=== PATIENT | female | born 1980 | race Caucasian/White ===

== ENCOUNTER → 2020-04-21 | Outpatient (CLI) | payer OTHER ==
--- NOTE | 2020-04-21 16:09 | REP ---
INDICATION: PAIN COMPARISON: None. TECHNIQUE: AP, lateral, bilateral oblique views left foot. FINDINGS: The osseous structures and joint spaces are intact and normal. There is no evidence for acute fracture or dislocation. Surrounding soft tissues are unremarkable. No subcutaneous emphysema or radiodense foreign body. IMPRESSION: . No acute fracture or dislocation. <Electronically signed by Kris Martinez > 04/21/20 [id number]
[2020-04-21 17:44] LABS: BASO # 0.1 10^3/uL (0.0-0.2); BASO % 0.7 % (0.0-1.0); EOS # 0.1 10^3/uL (0.0-0.5); EOS % 1.2 % (0.0-3.0); HEMATOCRIT 46.8 % (36.0-47.0); HEMOGLOBIN 14.9 g/dl (12.0-15.5); LYMPH % 24.4 % (24.0-44.0); MEAN CORPUSCULAR HEMOGLOBIN 29.9 pg (27.0-33.0); MEAN CORPUSCULAR HGB CONC 31.8 g/dl (32.0-36.5); MEAN CORPUSCULAR VOLUME 93.8 fl (80.0-96.0); MONO # 0.7 10^3/uL (0.0-0.8); MONO % 8.8 % (0.0-5.0); NEUTROPHILS # 5.2 10^3/uL (1.5-8.5); NEUTROPHILS % 64.5 % (36.0-66.0); PLATELET COUNT, AUTOMATED 253 10^3/uL (150-450); RED BLOOD COUNT 4.99 10^6/uL (4.00-5.40); WHITE BLOOD COUNT 8.1 10^3/uL (4.0-10.0)
[2020-04-21 18:05] LABS: ERYTHROCYTE SEDIMENTATION RATE 4 mm/hr (0-20)
[2020-04-21 18:12] LABS: ALBUMIN 4.5 GM/DL (3.2-5.2); ALT/SGPT 26 U/L (12-78); BILIRUBIN,TOTAL 0.6 MG/DL (0.2-1.0); BLOOD UREA NITROGEN 12 MG/DL (7-18); CALCIUM LEVEL 9.4 MG/DL (8.5-10.1); CARBON DIOXIDE LEVEL 30 MEQ/L (21-32); CHLORIDE LEVEL 104 MEQ/L (98-107); CREATININE FOR GFR 0.91 MG/DL (0.55-1.30); FREE T4 1.03 NG/DL (0.76-1.46); GLOMERULAR FILTRATION RATE > 60.0 (>60); GLUCOSE, FASTING 94 MG/DL (70-100); IRON (FE) 89 UG/DL (50-170); PERCENT SATURATION 23.8 % (13.2-45.0); POTASSIUM SERUM 3.9 MEQ/L (3.5-5.1); RHEUMATOID FACTOR QUANT < 10.0 IU/ML (<15.0); SODIUM LEVEL 138 MEQ/L (136-145); TOTAL IRON BINDING CAPACITY 374 UG/DL (250-450); TOTAL PROTEIN 8.1 GM/DL (6.4-8.2)
[2020-04-21 18:27] LABS: TOTAL 25(OH) VITAMIN D 37.4 NG/ML (30.0-100.0)
[2020-04-25 12:06] LABS: ANA (HEP2) Negative (.); CYCLIC CITRULLINATED PEPTIDE 7 units (0-19); TISSUE TRANSGLUTAMINASE IgA <2 U/mL (0-3); TISSUE TRANSGLUTAMINASE IgG 6 U/mL (0-5); VIT B12 UNSAT BINDING CAPACITY 1354 pg/mL (725-2045)
== END ==
LOC: M WUC 15:33
PROVIDERS: ATTEND Family Medicine
DX: M79.672 Pain in left foot (principal); M62.830 Muscle spasm of back; R61 Generalized hyperhidrosis; R53.83 Other fatigue

== ENCOUNTER → 2020-08-05 | Outpatient (REF) | payer OTHER, MEDICAID ==
[2020-08-05 11:42] LABS: HEMATOCRIT 45.6 % (36.0-47.0); HEMOGLOBIN 14.7 g/dl (12.0-15.5); MEAN CORPUSCULAR HEMOGLOBIN 30.6 pg (27.0-33.0); MEAN CORPUSCULAR HGB CONC 32.2 g/dl (32.0-36.5); PLATELET COUNT, AUTOMATED 262 10^3/uL (150-450); WHITE BLOOD COUNT 9.1 10^3/uL (4.0-10.0)
[2020-08-05 12:25] LABS: HCG, SERUM QUANTITATIVE 761 MIU/ML
[2020-08-05 12:42] LABS: HEPATITIS B SURFACE ANTIGEN NEGATIVE (NEGATIVE)
[2020-08-05 13:10] LABS: HEPATITIS C VIRUS ABY INDEX < 0.0 INDEX (<0.8)
[2020-08-08 08:10] LABS: HIV 1&2 SCREEN CENTAUR NEGATIVE (NEGATIVE)
== END ==
LOC: M LAB REF 11:02
PROVIDERS: ATTEND Advanced Practice Midwife
DX: Z32.01 Encounter for pregnancy test, result positive (principal)

== ENCOUNTER → 2021-01-12 | Outpatient (CLI) | payer BC ==
[2021-01-12 20:29] LABS: HEMATOCRIT 34.2 % (36.0-47.0); HEMOGLOBIN 10.9 g/dl (12.0-15.5); MEAN CORPUSCULAR HEMOGLOBIN 31.1 pg (27.0-33.0); MEAN CORPUSCULAR HGB CONC 31.9 g/dl (32.0-36.5); MEAN CORPUSCULAR VOLUME 97.7 fl (80.0-96.0); PLATELET COUNT, AUTOMATED 211 10^3/uL (150-450)
== END ==
LOC: M WUC 14:55
PROVIDERS: ATTEND Obstetrics & Gynecology
DX: Z34.82 Encounter for supervision of other normal pregnancy, second trimester (principal); Z3A.00 Weeks of gestation of pregnancy not specified

== ENCOUNTER 2021-02-20 11:39 | Outpatient (CLI) | payer BC ==
[~2021-02-20] VITALS: Ht 170.2 cm; Wt 66.5 kg
[2021-02-20 11:58] VITALS: BP 118/68
[2021-02-20] MEDS ORDERED: PRENTAB9 PO (12:15)
[2021-02-20] MEDS ORDERED: CLAR5TAB11 PO (12:16)
[2021-02-20] MEDS ORDERED: AMBI10TA PO (12:17)
[2021-02-20] MEDS ORDERED: MONT5CHW8 PO (12:19)
[2021-02-20] MEDS ORDERED: HOME MED LIST COMPLETE! XX SCH (12:20)
[2021-02-20] MEDS ORDERED: TIZA2TA PO (12:20)
[2021-02-20] MEDS ORDERED: LACTATED RINGER'S 1000 ML IV ONE (12:25)
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
[2021-02-20 13:18] VITALS: BP 99/58
[2021-02-20 13:21] LABS: HEMATOCRIT 39.1 % (36.0-47.0); HEMOGLOBIN 12.9 g/dl (12.0-15.5); MEAN CORPUSCULAR HEMOGLOBIN 31.5 pg (27.0-33.0); MEAN CORPUSCULAR VOLUME 95.4 fl (80.0-96.0); PLATELET COUNT, AUTOMATED 201 10^3/uL (150-450); WHITE BLOOD COUNT 8.9 10^3/uL (4.0-10.0)
[2021-02-20 13:33] LABS: INR 0.85
--- NOTE | 2021-02-20 13:41 | REP ---
INDICATION: contractions, rule out abruption. COMPARISON: None. TECHNIQUE: Real-time sonographic evaluation of gravid uterus performed. FINDINGS: There is a single living intrauterine gestation. The estimated gestational age is 33 weeks 4 days, EDC 04/06/2021. position cephalic. Placenta on the left, grade 1 with no previa or abruption. heart rate 127 beats per minute. Amniotic fluid within normal limits. MARCELINO 13.2, normal range 8.2-24.7. SD ratio umbilical artery 2.31, normal 1.75-3.72. RI 0.57, normal 0.47-0.73. Cervix is closed measures 4.8 cm in length. IMPRESSION: Viable intrauterine gestation as above. <Electronically signed by Mateo Roman > 02/20/21 [id number]
[2021-02-20] MEDS ORDERED: TERBUTALINE SULFATE 1 MG/ML VIAL (J3105) SC STA ×2 (14:00→16:38)
[2021-02-20 14:12] VITALS: BP 103/65
[2021-02-20 14:58] LABS: PARTIAL THROMBOPLASTIN TIME 28.1 SECONDS (25.9-37.0)
[2021-02-20 14:58] LABS: APPEARANCE, URINE CLEAR (CLEAR); BACTERIA, URINE AUTO NEGATIVE (NEGATIVE); BILIRUBIN, URINE AUTO NEGATIVE (NEGATIVE); BLOOD, URINE BLOOD NEGATIVE (NEGATIVE); COLOR, URINE YELLOW (YELLOW); GLUCOSE, URINE (UA) AUTO NEGATIVE (NEGATIVE); KETONE, URINE AUTO 1+ mg/dL (NEGATIVE); LEUKOCYTE ESTERASE, URINE AUTO NEGATIVE (NEGATIVE); NITRITE, URINE AUTO NEGATIVE (NEGATIVE); PROTEIN, URINE AUTO NEGATIVE (NEGATIVE); RBC, URINE AUTO 0 /HPF (0-3); SPECIFIC GRAVITY URINE AUTO 1.005 (1.002-1.035); SQUAMOUS EPITHELIAL CELL UR AU 1 /HPF (0-6); UROBILINOGEN, URINE AUTO 0.2 mg/dL (0.0-2.0); WBC, URINE AUTO 0 /HPF (0-3)
[2021-02-20 15:15] VITALS: BP 105/57
[2021-02-20 16:45] VITALS: BP 114/67
[2021-02-20 17:40] VITALS: BP 99/68
[2021-02-20] MEDS ORDERED: ONDANSETRON 4MG/2ML VIAL IV SCH (18:00)
[2021-02-20] MEDS ORDERED: ACETAMINOPHEN 500 MG TAB PO ONE (18:20)
== END 2021-02-20 18:50 | disposition home or self-care (01) ==
LOC: M LDO 11:39
PROVIDERS: ATTEND Advanced Practice Midwife
DX: O60.03 Preterm labor without delivery, third trimester (principal); O09.529 Supervision of elderly multigravida, unspecified trimester; O34.22 Maternal care for cesarean scar defect (isthmocele); Z3A.32 32 weeks gestation of pregnancy; Y92.9 Unspecified place or not applicable; Y93.9 Activity, unspecified; Y99.9 Unspecified external cause status
CPT/HCPCS: 59025; 76815; 76817; 81001; 85027; 85384; 85460; 85610; 85730; 86850; 86900; 86901; 87086; 96372; 96374; G0378; G0463; J2405; J3105

== ENCOUNTER → 2021-03-07 | Outpatient (REF) | payer BC ==
[~2021-03-07] MED LIST: AMBI10TA PO; CLAR5TAB11 PO; COLA100C5 PO; CVS1CAP2 PO; IBUP80TA PO; IRON65TA2 PO; MONT5CHW9 PO; PERCOCET PO; PRENTAB9 PO; TIZA2TA PO
== END ==
LOC: M LAB REF 16:32
PROVIDERS: ATTEND Advanced Practice Midwife
DX: Z34.83 Encounter for supervision of other normal pregnancy, third trimester (principal); Z3A.00 Weeks of gestation of pregnancy not specified

== ENCOUNTER → 2021-03-29 | Outpatient (CLI) | payer BC ==
[~2021-03-29] MED LIST changes: -COLA100C5 PO; -IBUP80TA PO; +MONT5CHW8 PO; -MONT5CHW9 PO; -PERCOCET PO
== END ==
LOC: M LABSMTC 12:53
PROVIDERS: ATTEND Anesthesiology
DX: Z01.812 Encounter for preprocedural laboratory examination (principal); Z20.822 Contact with and (suspected) exposure to COVID-19

== ENCOUNTER 2021-03-31 05:54 | Inpatient (IN) | payer BC ==
[~2021-03-31] VITALS: Ht 170.2 cm; Wt 67.3 kg
[2021-03-31] VITALS (7 sets, daily range): BP systolic 104–127; BP diastolic 69–84
[2021-03-31] MEDS ORDERED: BICITRA 30ML SOLN UDC PO ONE (06:00)
[2021-03-31] MEDS ORDERED: LR 1,000 ML IV ONE (06:10)
[2021-03-31 06:52] LABS: HEMATOCRIT 40.8 % (36.0-47.0); HEMOGLOBIN 13.3 g/dl (12.0-15.5); MEAN CORPUSCULAR HGB CONC 32.6 g/dl (32.0-36.5); MEAN CORPUSCULAR VOLUME 95.1 fl (80.0-96.0); PLATELET COUNT, AUTOMATED 179 10^3/uL (150-450); RED BLOOD COUNT 4.29 10^6/uL (4.00-5.40); WHITE BLOOD COUNT 7.7 10^3/uL (4.0-10.0)
[2021-03-31] MEDS ORDERED: LR 1,000 ML IV SCH ×2 (07:10→09:15)
[2021-03-31] MEDS ORDERED: ceFAZolin SOD 2 GM in IV 1 EA IV ONE (07:10)
[2021-03-31] MEDS ORDERED: MORPHINE PRES-FREE INJ 10 MG/10 ML VIAL (J2274) As Ordered ONE (07:17)
[2021-03-31] MEDS ORDERED: OXYTOCIN 30 UNITS IN 0.9% NaCl 500ML IV BAG (J2590) As Ordered ONE ×2 (07:18→08:48)
[2021-03-31] MEDS ORDERED: BICITRA 30ML SOLN UDC As Ordered ONE (07:18)
[2021-03-31] MEDS ORDERED: ceFAZolin 2 GM/D5W 50 ML IV BAG (J0690 PER 500MG) As Ordered ONE (07:18)
[2021-03-31] MEDS ORDERED: ONDANSETRON 4 MG TAB PO PRN (07:45)
[2021-03-31] MEDS ORDERED: MEASLES,MUMPS,RUBELLA VACCINE INJ (MMR-II) (90707) SC SCH (07:45)
[2021-03-31] MEDS ORDERED: KETOROLAC 30 MG/ML 1ML VIAL IV SCH (07:45)
[2021-03-31] MEDS ORDERED: OXYTOCIN DRIP 30 UNITS in IV 1 EA IV SCH (07:45)
[2021-03-31] MEDS ORDERED: MOM 30ML SUSPENSION UDC PO PRN (07:45)
[2021-03-31] MEDS ORDERED: RHOGAM 300 MCG (1500 IU) INJ (J2790) IM SCH (07:45)
[2021-03-31] MEDS ORDERED: METOCLOPRAMIDE INJ 10MG/2ML VIAL (J2765 PER 1) IV PRN ×2 (07:50→09:15)
[2021-03-31] MEDS ORDERED: NALOXONE INJ 0.4MG/1ML VIAL (J2310 PER 1MG) IV PRN ×2 (07:50)
[2021-03-31] MEDS ORDERED: diphenhydrAMINE 50MG/ML VIAL (J1200) IV PRN (07:50)
[2021-03-31] MEDS ORDERED: NALBUPHINE HCL 10 MG/ML AMP (J2300) IV PRN (07:50)
[2021-03-31] MEDS ORDERED: ONDANSETRON 4MG/2ML VIAL IV PRN ×2 (07:50→09:15)
[2021-03-31] MEDS ORDERED: PHENYLephrine 500MCG 5ML (100MCG/ML) SYRINGE As Ordered ONE (08:01)
[2021-03-31] MEDS ORDERED: ePHEDrine SULFATE 25 MG/5 ML(5MG/ML) SYRINGE As Ordered ONE (08:01)
[2021-03-31] MEDS ORDERED: GLYCOPYRROLATE INJ 0.2 MG/ML 2 ML VIAL As Ordered ONE (08:01)
[2021-03-31] MEDS ORDERED: ONDANSETRON 4MG/2ML VIAL As Ordered ONE (08:07)
[2021-03-31] MEDS ORDERED: dexameTHASONE 4 MG/ML 1ML VIAL (J1100 PER 1MG) As Ordered ONE (08:07)
[2021-03-31] MEDS ORDERED: KETOROLAC 60MG 2ML VIAL As Ordered ONE (08:09)
[2021-03-31 08:24] LABS: CORD GAS ABE V -2.4; CORD GAS HCO3 V 23.6 MEQ/L; CORD GAS O2 SAT V 54.9 %; CORD GAS PCO2 V 44.9 mmHg; CORD GAS PH V 7.339 UNITS; CORD GAS PO2 V 24.7 mmHg; CORD GAS SBC V 21.4 MEQ/L
[2021-03-31 08:28] LABS: CORD GAS HCO3 A 26.5 MEQ/L; CORD GAS O2 SAT A 25.5 %; CORD GAS PCO2 A 60.1 mmHg; CORD GAS PH A 7.262 UNITS; CORD GAS PO2 A 15.9 mmHg; CORD GAS TCO2 A 28.3 MEQ/L
[2021-03-31] MEDS ORDERED: PERCOCET PO (08:41)
[2021-03-31] MEDS ORDERED: PERCOCET 5MG/325MG TAB PO PRN (09:15)
[2021-03-31] MEDS ORDERED: fentaNYL 100 MCG/2 ML INJECTION (J3010) IV PRN (09:15)
[2021-03-31] MEDS ORDERED: fentaNYL 100 MCG/2 ML INJECTION (J3010) As Ordered ONE (09:26)
--- NOTE | 2021-03-31 10:31 | RO ---
OPERATIVE NOTE DATE OF OPERATION: 03/31/2021 Neris is a 40-year-old female with history of prior section x1. She presented at term for elective repeat section. The patient also has been complaining of probably pain in pelvic and abdominal pain, has been evaluated for labor several times. She wants to proceed with elective repeat section. PREOPERATIVE DIAGNOSES: 1. Term with history of prior section. 2. Pelvic/abdominal pain. 3. Elective repeat section. POSTOPERATIVE DIAGNOSES: 1. Term with history of prior section. 2. Pelvic/abdominal pain. 3. Elective repeat section. 4. Nuchal cord x6. PROCEDURES: Repeat section. Revision of old scar. SURGEON: Lucas Roberson DO MATERIALS INSPECTOR: ANESTHESIA: Spinal. COMPLICATIONS: None. ESTIMATED BLOOD LOSS: 600 mL. FINDINGS: Live female infant in occiput transverse position, Apgars 9 and 9, weight 6 pounds 3 ounces. Nuchal cord x6. Normal appearing tubes and ovaries. PROCEDURE: After obtaining informed consent, the patient was taken to the operating room where spinal anesthetic was found to be adequate. She was then draped and prepped in the usual sterile fashion in the supine position. At this point an elliptical incision was made over old scar. The old scar was removed. The incision was carried down to the fascia which was incised in midline fashion and carried through laterally. Superior aspect of the fascia was then grasped with two Mindi clamps, tented off and dissected off the rectus muscle sharply. The inferior aspect was dissected off in similar fashion. Rectus muscle in the midline fashion. Peritoneum identified, peritoneal cavity entered bluntly. Superior and inferior dissection of the peritoneum was then done with good visualization of the bladder. At this point Mobius skin retractor was placed. A low transverse uterine incision was made; was delivered in atraumatic fashion. The nose and mouth were bulb suctioned. The cord was doubly clamped and cut and the was handed over to awaiting warmer. Cord blood and cord gas were sent. The placenta was removed manually. The uterus was cleared of all clot and debris and the uterine incision was then repaired in two separate layers of #0 Vicryl sutures. All superficial bleeders were coagulated. The skin was reapproximated in subcuticular fashion using 3-0 Vicryl on Anoop. Steri-Strips placed. The patient tolerated the procedure well. She was then transferred to recovery room in stable condition. cc: [facility]
[2021-03-31] MEDS: DOCUSATE SODIUM 100MG CAPSULE PO SCH ×2 (11:41→20:15)
[2021-03-31] MEDS: PRENATAL VITAMINS CHEWABLE TABLET PO SCH (11:41)
[2021-03-31] MEDS: KETOROLAC 30 MG/ML 1ML VIAL IV SCH ×2 (14:01→20:16)
[2021-03-31] MEDS: PERCOCET 5MG/325MG TAB PO PRN (17:15)
[2021-04-01] MEDS: KETOROLAC 30 MG/ML 1ML VIAL IV SCH (01:29)
[2021-04-01 02:00] VITALS: BP 106/61
[2021-04-01 06:00] VITALS: BP 131/65
[2021-04-01] MEDS: PERCOCET 5MG/325MG TAB PO PRN ×3 (06:11→20:02)
[2021-04-01 08:45] LABS: HEMATOCRIT 30.6 % (36.0-47.0); MEAN CORPUSCULAR HEMOGLOBIN 31.6 pg (27.0-33.0); MEAN CORPUSCULAR HGB CONC 32.4 g/dl (32.0-36.5); MEAN CORPUSCULAR VOLUME 97.8 fl (80.0-96.0); PLATELET COUNT, AUTOMATED 144 10^3/uL (150-450); RED BLOOD COUNT 3.13 10^6/uL (4.00-5.40); WHITE BLOOD COUNT 13.2 10^3/uL (4.0-10.0)
[2021-04-01 08:47] LABS: HEMOGLOBIN 9.9 g/dl (12.0-15.5)
[2021-04-01] MEDS: SIMETHICONE 80MG CHEW TAB PO PRN ×2 (09:22→14:11)
[2021-04-01] MEDS: PRENATAL VITAMINS CHEWABLE TABLET PO SCH (09:22)
[2021-04-01] MEDS: DOCUSATE SODIUM 100MG CAPSULE PO SCH ×2 (09:22→20:56)
[2021-04-01 10:00] VITALS: BP 121/76
--- NOTE | 2021-04-01 11:49 | IPNPDOC ---
Progress Note Date of Service: Apr 01, 2021 Progress Note SUBJECT: Status post RLTCS She has been ambulating, voiding spontaneously without issue and tolerating regular diet. Lochia decreasing/minimal. Pain is well-controlled. Incision bandage is clean/unsaturated. Denies headache, visual changes, right upper quadrant pain, shortness of breath or chest pain. OBJECTIVE: VITAL SIGNS: Within normal limits, afebrile. Alert and oriented times three. Abdomen: Fundus firm at U-2. Soft, NTTP. Incision bandage not soaked through ASSESSMENT: Status post uncomplicated RLTCS. Vitals within normal limits, afebrile, hemodynamically stable with no evidence of infection. PLAN: Discharge to home tomorrow Routine /postoperative advancement Postoperative instructions/precautions reviewed. Routine PP visit at 2 and 6 weeks in clinic. VS, I&O, 24H, Fishbone Vital Signs/I&O Vital Signs Date Time Temp Pulse Resp B/P (MAP) Pulse Ox O2 Delivery O2 Flow Rate FiO2 04/01/21 10:00 98.4 62 16 121/76 (91) 100 Room Air I&O- Last 24 Hours up to 6 AM 04/01/21 06:00 Intake Total 1675 ml Output Total 1700 ml Balance -25 ml Laboratory Data 24H LABS Laboratory Tests 2 04/01/21 08:08: Nucleated Red Blood Cells % (auto) 0.0 CBC/BMP Laboratory Tests 04/01/21 08:08 LORI CRUZ DO Apr 01, 2021 11:49
[2021-04-01 14:00] VITALS: BP 115/71
[2021-04-01] MEDS: IBUPROFEN 800 MG TAB PO PRN ×2 (14:11→20:56)
[2021-04-01 18:08] VITALS: BP 110/70
[2021-04-01 22:00] VITALS: BP 101/56
[2021-04-02 02:00] VITALS: BP 102/65
[2021-04-02] MEDS: PERCOCET 5MG/325MG TAB PO PRN ×4 (03:49→23:52)
[2021-04-02] MEDS: SIMETHICONE 80MG CHEW TAB PO PRN ×4 (03:53→23:52)
[2021-04-02 06:00] VITALS: BP 141/79
[2021-04-02] MEDS: IBUPROFEN 800 MG TAB PO PRN ×3 (06:10→20:14)
[2021-04-02] MEDS: PRENATAL VITAMINS CHEWABLE TABLET PO SCH (10:01)
[2021-04-02] MEDS: DOCUSATE SODIUM 100MG CAPSULE PO SCH ×2 (10:01→20:14)
--- NOTE | 2021-04-02 14:32 | IPNPDOC ---
Progress Note Date of Service: Apr 02, 2021 Progress Note SUBJECT: Status post RLTCS She has been ambulating, voiding spontaneously without issue and tolerating regular diet. Lochia decreasing/minimal. Pain is well-controlled. Incision bandage is clean/unsaturated. Denies headache, visual changes, right upper quadrant pain, shortness of breath or chest pain. OBJECTIVE: VITAL SIGNS: Within normal limits, afebrile. Alert and oriented times three. Abdomen: Fundus firm at U-2. Soft, NTTP. Incision bandage not soaked through ASSESSMENT: Status post uncomplicated RLTCS. Vitals within normal limits, afebrile, hemodynamically stable with no evidence of infection. PLAN: Discharge to home tomorrow Routine /postoperative advancement Postoperative instructions/precautions reviewed. Routine PP visit at 2 and 6 weeks in clinic. VS, I&O, 24H, Fishbone Vital Signs/I&O Vital Signs Date Time Temp Pulse Resp B/P (MAP) Pulse Ox O2 Delivery O2 Flow Rate FiO2 04/02/21 10:31 16 Room Air 04/02/21 06:00 99.3 80 141/79 (99) 100 LORI CRUZ DO Apr 02, 2021 14:32
[2021-04-02 17:50] VITALS: BP 137/82
[2021-04-03] MEDS: IBUPROFEN 800 MG TAB PO PRN (04:14)
[2021-04-03] MEDS: SIMETHICONE 80MG CHEW TAB PO PRN ×2 (05:15→10:43)
[2021-04-03 06:00] VITALS: BP 119/72
[2021-04-03] MEDS ORDERED: IBUP80TA PO (08:59)
[2021-04-03] MEDS ORDERED: COLA100C5 PO (08:59)
--- NOTE | 2021-04-03 09:09 | DS.PDOC ---
Discharge Summary General Date of Admission Mar 31, 2021 at 05:54 Date of Discharge 04/03/21 Attending Physician: Lucas Roberson DO Discharge Summary PROCEDURES PERFORMED DURING STAY: Repeat section. ADMITTING DIAGNOSES: 1. IUP at term. 2. Elective repeat section. DISCHARGE DIAGNOSES: 1. 3 days postoperative. COMPLICATIONS/CHIEF COMPLAINT: History Of Section. HISTORY OF PRESENT ILLNESS: Neris is a 40-year-old female who had a repeat section at term. She had a living female. She is and pumping. She reports she is ambulating without dizziness, voiding without difficulty, and her bleeding has been light. Reports her pain is managed. DISCHARGE MEDICATIONS: Please see below. ALLERGIES: Please see below. PHYSICAL EXAMINATION ON DISCHARGE: VITAL SIGNS: Please see below. GENERAL: Awake and alert. Sitting up in chair at bedside. RESPIRATORY EXAMINATION: regular rate without use of accessory muscles. ABDOMINAL EXAMINATION: incision is approximated without erythema or drainage. EXTREMITIES: bilateral 1+ pitting edema in feet and ankles SKIN: warm, dry and intact. LABORATORY DATA: Please see below. ACTIVITY: As tolerated. DIET: regular DISCHARGE INSTRUCTIONS: 1. Discharge to home. 2. Appointment in 2 weeks for incision check and 6 weeks for . 3. Education done on care of incision, signs of infection, mastitis, endometritis, DVT, pulmonary embolism, pain management, depression, and other danger signs. DISCHARGE CONDITION: Stable. Vital Signs/I&Os Vital Signs Date Time Temp Pulse Resp B/P (MAP) Pulse Ox O2 Delivery O2 Flow Rate FiO2 04/03/21 06:00 98.8 66 16 119/72 (88) 98 Room Air Laboratory Data CBC/BMP Item Value Date Time White Blood Count 13.2 10^3/uL H 04/01/21 0808 Red Blood Count 3.13 10^6/uL L 04/01/21 0808 Hemoglobin 9.9 g/dl L # 04/01/21 0808 Hematocrit 30.6 % L 04/01/21 0808 Mean Corpuscular Volume 97.8 fl H 04/01/21 0808 Mean Corpuscular Hemoglobin 31.6 pg 04/01/21 0808 Mean Corpuscular Hemoglobin Concent 32.4 g/dl 04/01/21 0808 Red Cell Distribution Width 13.9 % 04/01/21 0808 Platelet Count 144 10^3/uL L 04/01/21 0808 Discharge Medications Scheduled Ferrous Sulfate (Iron) 325 Mg Tablet, 325 MG PO DAILY, (Reported) Lactobacillus Combo No.10 (Probiotic) 1 Each Capsule, 1 CAP PO DAILY, (Reported) Loratadine (Claritin) 5 Mg Tab.rapdis, 1 TAB PO DAILY for allergy symptoms, (Reported) Montelukast Sodium (Montelukast Sodium) 5 Mg Tab.chew, 10 MG PO DAILY, (Reported) No.137/Iron/Folic Acd ( Vitamin Tablet) 1 Each Tablet, 1 TAB PO DAILY, (Reported) Tizanidine HCl (Tizanidine HCl) 2 Mg Tablet, 4 TAB PO QPM, (Reported) Scheduled PRN Docusate Sodium (Colace) 100 Mg Capsule, 100 MG PO BIDP PRN for CONSTIPATION Ibuprofen (Ibuprofen) 800 Mg Tablet, 800 MG PO Q8HP PRN for PAIN LEVEL 4-7 Oxycodone/Acetaminophen (Oxycodone-Acetaminophen 5-325) 1 Each Tablet, 1 TAB PO Q4H PRN for MODERATE PAIN (PS 5-7) Zolpidem Tartrate (Ambien) 10 Mg Tablet, 10 MG PO QPMP PRN for sleep, (Reported) Allergies Coded Allergies: Penicillins (Verified Allergy, Intermediate, rash, hives, 03/22/21) No Known Drug Allergies (Verified Allergy, Unknown, 02/20/21) TENISHA COELHO CNM Apr 03, 2021 09:09
[2021-04-03] MEDS: DOCUSATE SODIUM 100MG CAPSULE PO SCH (10:41)
[2021-04-03] MEDS: PRENATAL VITAMINS CHEWABLE TABLET PO SCH (10:41)
[2021-04-03] MEDS: PERCOCET 5MG/325MG TAB PO PRN (10:42)
== END 2021-04-03 13:15 | disposition home or self-care (01) | DRG 540 ==
LOC: M LDI 05:54 → M OBS 10:26 → EDSTATUS 04-05 07:30
PROVIDERS: ADMIT Obstetrics & Gynecology; ATTEND Obstetrics & Gynecology
PROC: 10D00Z1 Extraction of Products of Conception, Low, Open Approach (ICD-10-PCS; principal; 2021-03-31 07:30)
DX: O34.211 Maternal care for low transverse scar from previous cesarean delivery (principal); O32.2XX0 Maternal care for transverse and oblique lie, not applicable or unspecified; Z37.0 Single live birth; Z3A.39 39 weeks gestation of pregnancy; O69.81X0 Labor and delivery complicated by cord around neck, without compression, not applicable or unspecified; O09.523 Supervision of elderly multigravida, third trimester; Z88.0 Allergy status to penicillin

== ENCOUNTER 2021-04-17 19:50 | Emergency (ER) | payer BC ==
[~2021-04-17] VITALS: Ht 170.2 cm; Wt 64.0 kg
[~2021-04-17 19:50] MED LIST changes: +COLA100C5 PO; +IBUP80TA PO; +PERCOCET PO
[2021-04-17 19:51] VITALS: BP 142/86
== END 2021-04-17 20:41 | disposition left against medical advice (07) ==
LOC: M ED 19:50
DX: Z53.21 Procedure and treatment not carried out due to patient leaving prior to being seen by health care provider (principal)

== ENCOUNTER → 2021-05-12 | Outpatient (CLI) | payer BC ==
[~2021-05-12] MED LIST changes: -MONT5CHW8 PO; +MONT5CHW9 PO
== END ==
LOC: M WHC 10:52
PROVIDERS: ATTEND Advanced Practice Midwife
DX: O72.2 Delayed and secondary postpartum hemorrhage (principal); N83.201 Unspecified ovarian cyst, right side

== ENCOUNTER → 2021-06-22 | Outpatient (CLI) | payer BC ==
[2021-06-22 09:36] LABS: BASO % 0.7 % (0.0-1.0); EOS # 0.1 10^3/uL (0.0-0.5); HEMATOCRIT 42.9 % (36.0-47.0); HEMOGLOBIN 13.8 g/dl (12.0-15.5); LYMPH # 1.7 10^3/uL (1.5-5.0); LYMPH % 28.3 % (24.0-44.0); MEAN CORPUSCULAR HEMOGLOBIN 29.2 pg (27.0-33.0); MEAN CORPUSCULAR HGB CONC 32.2 g/dl (32.0-36.5); MEAN CORPUSCULAR VOLUME 90.7 fl (80.0-96.0); MONO # 0.6 10^3/uL (0.0-0.8); MONO % 10.1 % (2.0-8.0); NEUTROPHILS # 3.4 10^3/uL (1.5-8.5); NEUTROPHILS % 58.6 % (36.0-66.0); PLATELET COUNT, AUTOMATED 225 10^3/uL (150-450); RED BLOOD COUNT 4.73 10^6/uL (4.00-5.40); WHITE BLOOD COUNT 5.9 10^3/uL (4.0-10.0)
[2021-06-22 10:13] LABS: ALBUMIN 4.1 GM/DL (3.2-5.2); ALT/SGPT 41 U/L (12-78); BILIRUBIN,TOTAL 0.5 MG/DL (0.2-1.0); BLOOD UREA NITROGEN 15 MG/DL (7-18); CALCIUM LEVEL 9.3 MG/DL (8.5-10.1); CARBON DIOXIDE LEVEL 29 MEQ/L (21-32); CHLORIDE LEVEL 107 MEQ/L (98-107); CHOLESTEROL LEVEL 193 MG/DL (<200); CHOLESTEROL RISK RATIO 2.443 (<5); CREATININE FOR GFR 0.88 MG/DL (0.55-1.30); FREE T4 0.96 NG/DL (0.76-1.46); GLOMERULAR FILTRATION RATE > 60.0 (>60); GLUCOSE, FASTING 89 MG/DL (70-100); HDL CHOLESTEROL 79 MG/DL (>40); LDL CHOLESTEROL 104 MG/DL (<100); NON-HDL-C 114 MG/DL; POTASSIUM SERUM 4.2 MEQ/L (3.5-5.1); SODIUM LEVEL 140 MEQ/L (136-145); TOTAL PROTEIN 7.4 GM/DL (6.4-8.2); TRIGLYCERIDES LEVEL 52 MG/DL (<150)
== END ==
LOC: M WUC 08:09
PROVIDERS: ATTEND Family Medicine
DX: Z13.220 Encounter for screening for lipoid disorders (principal); Z13.29 Encounter for screening for other suspected endocrine disorder; Z13.0 Encounter for screening for diseases of the blood and blood-forming organs and certain disorders involving the immune mechanism

== ENCOUNTER → 2021-08-01 | Outpatient (CLI) | payer BC ==
[2021-08-02 12:12] LABS: TISSUE TRANSGLUTAMINASE IgA <2 U/mL (0-3); TISSUE TRANSGLUTAMINASE IgG 3 U/mL (0-5); UNITSIGA FOR GLIADIN IGA 5 units (0-19); UNITSIGG FOR GLIADIN IGG 2 units (0-19)
== END ==
LOC: M WUC 08:17
PROVIDERS: ATTEND Family Medicine
DX: M41.35 Thoracogenic scoliosis, thoracolumbar region (principal); R14.0 Abdominal distension (gaseous); R19.4 Change in bowel habit

== ENCOUNTER → 2021-09-18 | Outpatient (REF) | payer BC | LOC: M SFHCDERM 14:54 | PROVIDERS: ATTEND Nurse Practitioner Family | DX: D48.9 Neoplasm of uncertain behavior, unspecified (principal) ==

== ENCOUNTER → 2021-11-16 | Outpatient (REF) | payer BC ==
[~2021-11-16] MED LIST changes: +MONT5CHW10 PO; -MONT5CHW9 PO
== END ==
LOC: M LAB REF 16:57
PROVIDERS: ATTEND Nurse Practitioner Adult Health
DX: N89.8 Other specified noninflammatory disorders of vagina (principal)

== ENCOUNTER → 2021-12-25 | Outpatient (REF) | payer BC | LOC: M LAB REF 16:55 | PROVIDERS: ATTEND Nurse Practitioner Adult Health | DX: N89.8 Other specified noninflammatory disorders of vagina (principal) ==

== ENCOUNTER → 2022-01-29 | Outpatient (REF) | payer BC | LOC: M SFHCDERM 17:16 | PROVIDERS: ATTEND Physician Assistant | DX: D49.2 Neoplasm of unspecified behavior of bone, soft tissue, and skin (principal) ==

== ENCOUNTER → 2022-04-17 | Outpatient (REF) | payer BC, MEDICAID ==
[2022-04-17 17:16] LABS: HEMATOCRIT 45.4 % (36.0-47.0); MEAN CORPUSCULAR HEMOGLOBIN 30.8 pg (27.0-33.0); MEAN CORPUSCULAR VOLUME 93.2 fl (80.0-96.0); PLATELET COUNT, AUTOMATED 260 10^3/uL (150-450); RED BLOOD COUNT 4.87 10^6/uL (4.00-5.40); WHITE BLOOD COUNT 8.2 10^3/uL (4.0-10.0)
[2022-04-17 17:50] LABS: HEPATITIS B SURFACE ANTIGEN NEGATIVE (NEGATIVE)
[2022-04-17 18:02] LABS: HIV 1&2 SCREEN CENTAUR NEGATIVE (NEGATIVE)
[2022-04-17 18:09] LABS: HEPATITIS C VIRUS ABY INDEX 0.1 INDEX (<0.8)
[2022-04-17 18:17] LABS: HCG, SERUM QUANTITATIVE 3291.4 MIU/ML (<4.2)
== END ==
LOC: M LAB REF 16:20
PROVIDERS: ATTEND Obstetrics & Gynecology
DX: O36.80X0 Pregnancy with inconclusive fetal viability, not applicable or unspecified (principal); Z32.01 Encounter for pregnancy test, result positive

== ENCOUNTER → 2022-04-26 | Outpatient (CLI) | payer BC | LOC: M RAD 10:30 | PROVIDERS: ATTEND Obstetrics & Gynecology | DX: O36.80X0 Pregnancy with inconclusive fetal viability, not applicable or unspecified (principal); Z32.01 Encounter for pregnancy test, result positive ==

== ENCOUNTER 2022-05-24 10:40 | Emergency (ER) | payer BC ==
[~2022-05-24] VITALS: Ht 170.2 cm; Wt 57.7 kg
[2022-05-24 12:47] LABS: BASO % 0.4 % (0.0-1.0); EOS % 0.4 % (0.0-3.0); HEMATOCRIT 44.1 % (36.0-47.0); HEMOGLOBIN 14.3 g/dl (12.0-15.5); LYMPH # 1.5 10^3/uL (1.5-5.0); LYMPH % 15.1 % (24.0-44.0); MEAN CORPUSCULAR HEMOGLOBIN 30.2 pg (27.0-33.0); MEAN CORPUSCULAR HGB CONC 32.4 g/dl (32.0-36.5); MEAN CORPUSCULAR VOLUME 93.2 fl (80.0-96.0); MONO # 0.7 10^3/uL (0.0-0.8); MONO % 6.7 % (2.0-8.0); NEUTROPHILS # 7.8 10^3/uL (1.5-8.5); PLATELET COUNT, AUTOMATED 218 10^3/uL (150-450); RED BLOOD COUNT 4.73 10^6/uL (4.00-5.40); WHITE BLOOD COUNT 10.1 10^3/uL (4.0-10.0)
[2022-05-24 14:21] VITALS: BP 151/81
[2022-05-24 14:47] LABS: GC DNA AMPLIFICATION NEGATIVE (NEGATIVE)
== END 2022-05-24 14:23 | disposition home or self-care (01) ==
LOC: M ED 10:40
DX: O02.1 Missed abortion (principal); Z88.0 Allergy status to penicillin; Z79.810 Long term (current) use of selective estrogen receptor modulators (SERMs); Z79.899 Other long term (current) drug therapy

== ENCOUNTER → 2022-05-31 | Outpatient (REF) | payer BC | LOC: M LAB REF 11:03 | PROVIDERS: ATTEND Obstetrics & Gynecology | DX: O03.4 Incomplete spontaneous abortion without complication (principal) ==

== ENCOUNTER → 2022-06-06 | Outpatient (REF) | payer BC | LOC: M LAB REF 16:12 | PROVIDERS: ATTEND Obstetrics & Gynecology | DX: O03.4 Incomplete spontaneous abortion without complication (principal) ==

== ENCOUNTER → 2022-06-14 | Outpatient (REF) | payer BC | LOC: M LAB REF 16:24 | PROVIDERS: ATTEND Obstetrics & Gynecology | DX: O03.4 Incomplete spontaneous abortion without complication (principal) ==

== ENCOUNTER → 2022-06-21 | Outpatient (REF) | payer BC | LOC: M LAB REF 12:16 | PROVIDERS: ATTEND Obstetrics & Gynecology | DX: O03.4 Incomplete spontaneous abortion without complication (principal) ==

== ENCOUNTER → 2022-06-29 | Outpatient (CLI) | payer BC ==
[2022-06-29 09:33] LABS: BASO % 0.5 % (0.0-1.0); EOS # 0.1 10^3/uL (0.0-0.5); EOS % 1.1 % (0.0-3.0); HEMATOCRIT 40.6 % (36.0-47.0); HEMOGLOBIN 13.5 g/dl (12.0-15.5); LYMPH # 2.5 10^3/uL (1.5-5.0); LYMPH % 30.9 % (24.0-44.0); MEAN CORPUSCULAR HEMOGLOBIN 31.7 pg (27.0-33.0); MEAN CORPUSCULAR HGB CONC 33.3 g/dl (32.0-36.5); MEAN CORPUSCULAR VOLUME 95.3 fl (80.0-96.0); MONO # 0.7 10^3/uL (0.0-0.8); MONO % 8.7 % (2.0-8.0); NEUTROPHILS # 4.7 10^3/uL (1.5-8.5); NEUTROPHILS % 58.6 % (36.0-66.0); PLATELET COUNT, AUTOMATED 244 10^3/uL (150-450); RED BLOOD COUNT 4.26 10^6/uL (4.00-5.40)
[2022-06-29 10:03] LABS: FREE T4 1.11 NG/DL (0.89-1.76); THYROID STIMULATING HORMONE 4.079 uIU/ML (0.55-4.78)
[2022-06-29 10:04] LABS: ALBUMIN 3.9 G/DL (3.2-5.2); ALKALINE PHOSPHATASE 52 U/L (46-116); ALT/SGPT 15 U/L (7.0-40); AST/SGOT 17 U/L (<34); BILIRUBIN,TOTAL 0.6 MG/DL (0.3-1.2); BLOOD UREA NITROGEN 14 MG/DL (9-23); CALCIUM LEVEL 9.2 MG/DL (8.5-10.1); CARBON DIOXIDE LEVEL 28 MMOL/L (20-31); CHLORIDE LEVEL 105 MMOL/L (98-107); CHOLESTEROL LEVEL 195 MG/DL (<200); CHOLESTEROL RISK RATIO 2.59 (<5); CREATININE FOR GFR 0.82 MG/DL (0.55-1.30); GLOMERULAR FILTRATION RATE > 60.0 (>60); GLUCOSE, FASTING 84 MG/DL (60-100); HDL CHOLESTEROL 75.1 MG/DL (>40); LDL CHOLESTEROL 97.1 MG/DL (<100); NON-HDL-C 119.9 MG/DL; POTASSIUM SERUM 3.9 MMOL/L (3.5-5.1); SODIUM LEVEL 140 MMOL/L (136-145); TOTAL PROTEIN 6.9 G/DL (5.7-8.2); TRIGLYCERIDES LEVEL 114 MG/DL (<150)
== END ==
LOC: M WUC 08:20
PROVIDERS: ATTEND Family Medicine
DX: Z13.0 Encounter for screening for diseases of the blood and blood-forming organs and certain disorders involving the immune mechanism (principal); Z13.29 Encounter for screening for other suspected endocrine disorder; Z13.220 Encounter for screening for lipoid disorders

== ENCOUNTER → 2022-12-19 | Outpatient (CLI) | payer MEDICAID | LOC: M WHC 14:43 | PROVIDERS: ATTEND Family Medicine | DX: Z12.31 Encounter for screening mammogram for malignant neoplasm of breast (principal) ==

== ENCOUNTER → 2023-07-17 | Outpatient (CLI) | payer OTHER ==
[~2023-07-17] MED LIST changes: +E-Z-GAS II EFFERVESCENT PACKET (SODIUM BICARB./CITRIC ACID/SIMETHICONE) As Ordered ONE; +E-Z-HD 98% w/w 340GM SUSP BTL As Ordered ONE; +E-Z-PAQUE 96% w/w SUSP 176GM BTL As Ordered ONE
== END ==
LOC: M RAD 08:18
PROVIDERS: ATTEND Internal Medicine Gastroenterology
DX: R10.31 Right lower quadrant pain (principal)

== ENCOUNTER → 2023-08-13 | Outpatient (REF) | payer OTHER, BC ==
[~2023-08-13] MED LIST changes: -E-Z-GAS II EFFERVESCENT PACKET (SODIUM BICARB./CITRIC ACID/SIMETHICONE) As Ordered ONE; -E-Z-HD 98% w/w 340GM SUSP BTL As Ordered ONE; -E-Z-PAQUE 96% w/w SUSP 176GM BTL As Ordered ONE
== END ==
LOC: M LAB REF 17:19
PROVIDERS: ATTEND Physician Assistant
DX: N39.0 Urinary tract infection, site not specified (principal)

== ENCOUNTER → 2023-08-29 | Outpatient (REF) | payer BC ==
[~2023-08-29] MED LIST changes: +CLAR10CA3 PO
== END ==
LOC: M LAB REF 17:13
PROVIDERS: ATTEND Family Medicine
DX: N39.0 Urinary tract infection, site not specified (principal)

== ENCOUNTER → 2023-09-30 | Outpatient (CLI) | payer BC ==
[~2023-09-30] MED LIST changes: +TIZA10TA PO
== END ==
LOC: M WHC 10:39
PROVIDERS: ATTEND Family Medicine
DX: R10.2 Pelvic and perineal pain (principal)

== ENCOUNTER → 2025-01-18 | Outpatient (CLI) | payer BC ==
[~2025-01-18] MED LIST changes: -AMBI10TA PO; +ZOLP-533 PO
[2025-01-18 14:08] LABS: BASO # 0.1 10^3/uL (0.0-0.2); BASO % 0.5 % (0.0-1.0); EOS # 0.1 10^3/uL (0.0-0.5); EOS % 0.5 % (0.0-3.0); LYMPH # 1.3 10^3/uL (1.5-5.0); LYMPH % 12.9 % (24.0-44.0); MONO # 0.7 10^3/uL (0.0-0.8); MONO % 7.0 % (2.0-8.0); NEUTROPHILS # 7.7 10^3/uL (1.5-8.5); NEUTROPHILS % 78.7 % (36.0-66.0); PLATELET COUNT, AUTOMATED 258 10^3/uL (150-450)
[2025-01-18 14:10] LABS: ALT/SGPT 55.0 U/L (7.0-40); AST/SGOT 59.0 U/L (<34); CALCIUM LEVEL 9.6 MG/DL (8.5-10.1); CARBON DIOXIDE LEVEL 27.0 MMOL/L (20-31); CHLORIDE LEVEL 106.0 MMOL/L (98-107); CREATININE FOR GFR 0.84 MG/DL (0.55-1.30); GLOMERULAR FILTRATION RATE 88.9 (>58); IRON (FE) 124.0 UG/DL (50-170); MAGNESIUM LEVEL 2.2 MG/DL (1.8-2.4); POTASSIUM SERUM 3.7 MMOL/L (3.5-5.1); SODIUM LEVEL 142.0 MMOL/L (136-145)
[2025-01-18 14:11] LABS: PERCENT SATURATION 42.8 % (13.2-45.0)
[2025-01-18 14:12] LABS: FREE T4 1.29 NG/DL (0.89-1.76)
== END ==
LOC: M PLALAB 10:26
PROVIDERS: ATTEND Family Medicine
DX: R55 Syncope and collapse (principal)

== ENCOUNTER → 2025-02-10 | Outpatient (CLI) | payer BC | LOC: M WHC 12:03 | PROVIDERS: ATTEND Family Medicine | DX: Z12.31 Encounter for screening mammogram for malignant neoplasm of breast (principal); R92.333 Mammographic heterogeneous density, bilateral breasts ==